=== PATIENT | female | born 1985 | race Caucasian/White ===

== ENCOUNTER → 2018-08-25 11:57 | Day surgery (SDC) | payer OTHER ==
[~2018-08-25 11:57] MED LIST: Buffered Lidocaine 0.9% SYRIN* 5 ML/SYR SYRINGE INTRADERM ONE; Buffered Lidocaine 0.9% SYRIN* 5 ML/SYR SYRINGE ONE; DOXYcycline IV* 100 MG in NS 0.9% 250 ML* 250 ML IVPB ONE; Lidocaine 2% PF * 5 ML VIAL ONE; Misoprostol TAB* 200 MCG ONE; Naloxone* 0.4 MG/ML 1 ML VIAL IV PRN; Propofol* 10 MG/ML 20 ML BTL IV PUSH ONE; Sodium Citrate/Citric Acid* 15 ML UDC ONE; Sodium Citrate/Citric Acid* 15 ML UDC PO ONE; fentaNYL* 50 MCG/ML 2 ML VIAL (100 MCG VIAL) IV PRN; fentaNYL* 50 MCG/ML 2 ML VIAL (100 MCG VIAL) ONE
[2018-08-25 13:43] LABS: ABS Basophils 0.1 10^3/ul (0-0.2); ABS Eosinophils 0.1 10^3/ul (0-0.6); ABS Lymphocytes 1.7 10^3/ul (1.0-4.8); ABS Monocytes 0.6 10^3/ul (0-0.8); ABS Nucleated RBC 0 10^3/ul; Eosinophil % 1.3 % (0-6); Hematocrit 37 % (35-47); Hemoglobin 12.6 g/dl (12.0-16.0); Lymphocyte % 19.8 % (25-47); Mean Corpuscular HGB Conc 34 g/dl (31-36); Mean Corpuscular Hemoglobin 29 pg (27-31); Mean Corpuscular Volume 85 fL (80-97); Mean Platelet Volume 9.3 um3 (7.4-10.4); Nucleated Red Blood Cells % 0; Platelet Count 251 10^3/ul (150-450); Red Cell Distribution Width 13 % (10.5-15); White Blood Count 8.4 10^3/ul (3.5-10.8)
[2018-08-25 16:03] VITALS: BP 121/68
--- NOTE | 2018-08-26 01:58 | OP ---
DATE OF OPERATION: 08/25/18 - [facility] DATE OF : 81. SURGEON: Chantel Madison MD. SLATE ROOFER: None. ANESTHESIA: General endotracheal. PRE-OP DIAGNOSIS: MAB at 10-week size. POST-OP DIAGNOSIS: MAB at 10-week size. OPERATIVE PROCEDURE: Suction, dilation and curettage. ESTIMATED BLOOD LOSS: Minimal. FLUIDS: Crystalloid. FINDINGS: Slightly enlarged uterus back to normal size after removal of products of conception. Normal appearing cervix and vagina. COMPLICATIONS: None. DESCRIPTION OF PROCEDURE: After informed consent was signed, the patient was taken to the operating room where she was given general anesthesia that was found to be adequate. She was prepped and draped in the dorsal lithotomy position in a candy cane stirrups. A time-out was performed. The bladder was drained of urine. Two speculums were then placed into the vagina to expose the cervix. The anterior lip of the cervix was grasped with a single-tooth tenaculum. The cervix was dilated until a size 12 curved suction cannula could be inserted. The suction device was then turned on and the uterine contents were gently curettaged with the suction device. Once a gritty texture was found in all surfaces of the uterus and the uterine size had decreased, the cannula was removed. Good hemostasis was noted. The tenaculum was removed and good hemostasis was still noted. Bimanual uterine massage was also performed and the uterus was noted to have contracted. The speculums were then removed. The patient was cleaned, placed back in the supine position, awakened from anesthesia and taken to the recovery room in stable condition. [id number]/[facility] #: [id number] LUANA
== END | disposition home or self-care (01) ==
LOC: OR 11:57
PROVIDERS: ATTEND Obstetrics & Gynecology
DX: O02.1 Missed abortion (principal); Z3A.10 10 weeks gestation of pregnancy; M54.5 Low back pain; L40.9 Psoriasis, unspecified
CPT/HCPCS: 36415; 85025; 86850; 86900; 86901; 88233; 88262; 88285; 88291; 88305; A9270-GY; J2704; J3010

== ENCOUNTER 2020-01-31 20:12 | Emergency (ER) | payer OTHER ==
[2020-01-31 20:23] VITALS: BP 132/66
== END 2020-01-31 21:09 | disposition left against medical advice (07) ==
LOC: ED 20:12
DX: R07.9 Chest pain, unspecified (principal); Z53.21 Procedure and treatment not carried out due to patient leaving prior to being seen by health care provider
CPT/HCPCS: 93005; 99282